=== PATIENT | female | born 1960 | race Asian ===

== ENCOUNTER 2024-08-12 13:13 | Emergency (ER) | payer MEDICAID ==
[~2024-08-12] VITALS: Ht 160 cm; Wt 59.0 kg
[2024-08-12 13:39] VITALS: BP 135/98; TEMP 98
[2024-08-12] MEDS ORDERED: GABA-536 PO (16:48)
[2024-08-12 17:13] VITALS: O2SAT 98
== END 2024-08-12 17:14 | disposition home or self-care (01) ==
LOC: ER 14:31
DX: M54.59 Other low back pain (principal); E11.9 Type 2 diabetes mellitus without complications; I10 Essential (primary) hypertension
CPT/HCPCS: 72131-TC